=== PATIENT | female | born 1995 | race Caucasian/White ===

== ENCOUNTER → 2016-11-25 | Outpatient (REF) | payer OTHER ==
[~2016-11-25] MED LIST: ACET500C PO; IBUP80TA PO; PRE-TAB3 PO
== END ==
LOC: M LAB REF 13:22
PROVIDERS: ATTEND Specialist
DX: Z34.83 Encounter for supervision of other normal pregnancy, third trimester (principal); Z36 Encounter for antenatal screening of mother

== ENCOUNTER 2016-12-16 10:34 | Inpatient (IN) | payer OTHER ==
[2016-12-16] VITALS (8 sets, daily range): BP systolic 114–138; BP diastolic 75–90
[~2016-12-16] VITALS: Ht 154.9 cm; Wt 57.0 kg
[2016-12-16] MEDS: PRENATAL VITAMIN TAB PO SCH (09:00)
[2016-12-16 11:10] LABS: MEAN CORPUSCULAR HEMOGLOBIN 30.6 pg (27.0-33.0); MEAN CORPUSCULAR HGB CONC 33.1 g/dl (32.0-36.5); MEAN CORPUSCULAR VOLUME 92.5 fl (80.0-96.0); WHITE BLOOD COUNT 19.5 K/mm3 (4.0-10.0)
[2016-12-16] MEDS ORDERED: OXYTOCIN 30 UNITS IN 0.9% NaCl 500ML IV BAG (J2590) As Ordered ONE (11:40)
[2016-12-16] MEDS ORDERED: OXYTOCIN DRIP 30 UNITS in APPROPRIATE DILUENT 1 EA IV SCH (13:35)
[2016-12-16] MEDS: IBUPROFEN 800 MG TAB PO PRN ×2 (13:38→20:54)
[2016-12-16] MEDS ORDERED: METHYLERGONOVINE MALEATE 0.2 MG TAB PO PRN (13:45)
[2016-12-16] MEDS ORDERED: MOM 30ML SUSPENSION UDC PO PRN (13:45)
[2016-12-16] MEDS ORDERED: DIBUCAINE 1% OINTMENT 30GM TOP PRN (13:45)
[2016-12-16] MEDS ORDERED: MEASLES,MUMPS,RUBELLA VACCINE INJ (MMR-II) (90707) SC SCH (13:45)
[2016-12-16] MEDS ORDERED: DOCUSATE SODIUM 100 MG CAP PO PRN (13:45)
[2016-12-16] MEDS ORDERED: ANUSOL HC CREAM 30GM TOP PRN (13:45)
[2016-12-16] MEDS ORDERED: ACETAMINOPHEN 500 MG TAB PO PRN (13:45)
[2016-12-16] MEDS ORDERED: RHOGAM 300 MCG (1500 IU) INJ (J2790) IM SCH (13:45)
--- NOTE | 2016-12-16 15:12 | HPE ---
DATE OF ADMISSION: 12/16/2016 REASON FOR ADMISSION: Labor. HISTORY OF PRESENT ILLNESS: Ms. Bell is a 21-year-old, 2, para 1, who presents at 39 weeks 4 days estimated gestational age in active labor. She reports contractions that started throughout the morning and have increased in intensity and frequency. She reports active movements. Denies any vaginal bleeding or leakage of fluid. Her course has been unremarkable. She initiated care in the first trimester and it has been appropriate throughout. PAST MEDICAL HISTORY: Anxiety. PAST SURGICAL HISTORY: None. PAST OBSTETRICAL HISTORY: She is a 2, para 1. She has had a terminal vaginal delivery proven to 6 pounds 6 ounces. MEDICATIONS: - vitamin ALLERGIES: She has no known drug allergies. SOCIAL HISTORY: She denies any alcohol, tobacco, or drug use during the . PHYSICAL EXAMINATION: VITAL SIGNS: Stable. She is afebrile. She has a category 1 heart rate tracing with contractions approximately every 2 to 3 minutes on tocodynamometer. GENERAL APPEARANCE: No acute distress. LUNGS: Clear to auscultation bilaterally. CARDIOVASCULAR: Heart has regular rate and rhythm. ABDOMEN: Soft, gravid, nontender. CERVICAL EXAM: She is 8 cm dilated, 90% effaced with bulging bag of fluid, 0 station. LABORATORY DATA: Blood type is A positive. Antibody screen is negative. Rubella was equivocal and will need vaccination. RPR nonreactive. Hepatitis surface antigen is negative. HIV is negative. Hepatitis C is nonreactive. Chlamydia and gonorrhea screens negative. She had a normal 1-hour Glucola of 106. She is Group B streptococcus (GBS) negative. ASSESSMENT: 1. Ms. Bell is a 21-year-old, 2, para 1, who is 39 weeks 4 days estimated gestational age in active labor. 2. Reassuring status. PLAN: 1. Admit to labor and delivery. CBC, RPR, type and screen. 2. Anticipate spontaneous vaginal delivery.
--- NOTE | 2016-12-16 15:46 | PAIN ---
DATE: 12/16/2016 DATE OF DELIVERY: 12/16/2016 TIME OF : 11:57 GENDER: Male. APGARS: 8 and 9. WEIGHT: 3602 grams (7 pounds, 16 ounces). LACERATIONS: None. ANESTHESIA: None. ESTIMATED BLOOD LOSS: 3 mL. COUNTS: 5 laparotomy sponges accounted for prior to and after delivery. DELIVER NOTE: On the 12/16/2016 at 11:53, Ms. Bell, a 21-year-old 2, now para 2, had a spontaneous vaginal delivery of a live born male infant. Apgars are 8 and 9, weight was 7 pounds, 16 ounces, 3602 grams and was delivered left occipitoanterior (KARINA) over intact perineum followed by delivery of right anterior shoulder, left posterior shoulder and corpus. Infant was handed to mom with a good cry. Cord was clamped times two, was clamped by the father of the baby under my direction. Cord blood was then obtained. Placenta was then drained and delivered grossly intact. A premixed bag of 5 mL of normal saline with 30 units of pitocin was then bolused, along with uterine massage, the uterus was firm. On inspection of cervix, vagina and perineum were grossly intact, hemostatic. Mom and baby in recovery room in stable condition. The couple decided to name their son Olegario.
[2016-12-17 06:17] VITALS: BP 115/72
[2016-12-17] MEDS: PRENATAL VITAMIN TAB PO SCH (08:17)
[2016-12-17] MEDS: IBUPROFEN 800 MG TAB PO PRN (16:00)
[2016-12-17 18:17] VITALS: BP 120/74
[2016-12-17 22:00] VITALS: BP 120/62
[2016-12-18 06:00] VITALS: BP 116/75
[2016-12-18] MEDS: PRENATAL VITAMIN TAB PO SCH (09:42)
[2016-12-18] MEDS ORDERED: IBUP-1114 PO (11:18)
[2016-12-18] MEDS ORDERED: ACET50TA PO (11:18)
== END 2016-12-18 11:45 | disposition home or self-care (01) | DRG 560 ==
LOC: M LDI 10:34 → M OBS 14:25
PROVIDERS: ADMIT Obstetrics & Gynecology; ATTEND Obstetrics & Gynecology
PROC: 10E0XZZ Delivery of Products of Conception, External Approach (ICD-10-PCS; principal; 2016-12-16)
DX: O80 Encounter for full-term uncomplicated delivery (principal); Z37.0 Single live birth; Z3A.39 39 weeks gestation of pregnancy

== ENCOUNTER → 2018-10-10 | Outpatient (REF) | payer OTHER ==
[~2018-10-10] MED LIST changes: +IBUP-1114 PO; +MAPA500T2 PO
== END ==
LOC: M SMT 13:05
PROVIDERS: ATTEND Advanced Practice Midwife
DX: Z12.4 Encounter for screening for malignant neoplasm of cervix (principal)

== ENCOUNTER → 2018-10-11 | Outpatient (REF) | payer OTHER ==
[2018-10-11 12:17] LABS: HEMATOCRIT 38.5 % (36.0-47.0); HEMOGLOBIN 12.7 g/dl (12.0-15.5); MEAN CORPUSCULAR HEMOGLOBIN 30.9 pg (27.0-33.0); MEAN CORPUSCULAR VOLUME 93.7 fl (80.0-96.0); PLATELET COUNT, AUTOMATED 262 10^3/uL (150-450); RED BLOOD COUNT 4.11 10^6/uL (4.00-5.40); WHITE BLOOD COUNT 6.1 10^3/uL (4.0-10.0)
== END ==
LOC: M SFHCPLAZ 10:07
PROVIDERS: ATTEND Family Medicine
DX: R42 Dizziness and giddiness (principal)

== ENCOUNTER → 2019-03-13 | Outpatient (CLI) | payer OTHER ==
[2019-03-13 17:57] LABS: BASO % 0.3 % (0.0-1.0); EOS # 0.1 10^3/uL (0.0-0.50); EOS % 0.7 % (0.0-3.0); HEMATOCRIT 37.2 % (36.0-47.0); HEMOGLOBIN 12.4 g/dl (12.0-15.5); LYMPH # 1.8 10^3/uL (1.5-6.5); MEAN CORPUSCULAR HEMOGLOBIN 31.1 pg (27.0-33.0); MEAN CORPUSCULAR HGB CONC 33.3 g/dl (32.0-36.5); MEAN CORPUSCULAR VOLUME 93.2 fl (80.0-96.0); MONO # 0.5 10^3/uL (0.0-0.8); MONO % 4.7 % (0.0-5.0); NEUTROPHILS # 8.2 10^3/uL (1.8-7.7); PLATELET COUNT, AUTOMATED 278 10^3/uL (150-450); RED BLOOD COUNT 3.99 10^6/uL (4.00-5.40); WHITE BLOOD COUNT 10.6 10^3/uL (4.0-10.0)
[2019-03-13 18:59] LABS: CHLAMYDIA DNA AMPLIFICATION NEGATIVE (NEGATIVE); GC DNA AMPLIFICATION NEGATIVE (NEGATIVE)
[2019-03-14 11:44] LABS: HEPATITIS C VIRUS ABY INDEX < 0.0 INDEX (<0.8); HIV 1&2 SCREEN CENTAUR NEGATIVE (NEGATIVE); RUBELLA IgG QUALITATIVE IMMUNE (IMMUNE)
== END ==
LOC: M SMT 13:35
PROVIDERS: ATTEND Advanced Practice Midwife
DX: Z3A.12 12 weeks gestation of pregnancy (principal); Z34.81 Encounter for supervision of other normal pregnancy, first trimester

== ENCOUNTER → 2019-03-27 | Outpatient (CLI) | payer OTHER ==
--- NOTE | 2019-03-27 15:22 | REP ---
Clinical: Dating and viability Comparison: None . Findings: Examination demonstrates a single live intrauterine in transverse presentation. motion is identified by technologist. Placenta is noted anteriorly and grade zero without evidence for placenta previa or abruption. Amniotic fluid volume is normal. Cervix measures 4.0 cm in length and appears closed. No evidence for nuchal cord. Biometrical measurements correspond to 15 weeks 2 days gestational age with estimated date of delivery 09/16/2019. heart rate equals 143 bpm. Impression: Single live early intrauterine with biometrical measurements at 15 weeks 2 days gestational age. Complete anatomical assessment should be performed at 19-20 weeks. Electronically Signed by Americo Freeman MD 03/27/2019 03:13 P
== END ==
LOC: M RAD 14:29
PROVIDERS: ATTEND Advanced Practice Midwife
DX: Z34.82 Encounter for supervision of other normal pregnancy, second trimester (principal); Z36.89 Encounter for other specified antenatal screening; Z3A.15 15 weeks gestation of pregnancy

== ENCOUNTER 2019-04-28 18:10 | Emergency (ER) | payer OTHER ==
[~2019-04-28] VITALS: Ht 154.9 cm; Wt 50.5 kg
[2019-04-28 20:45] VITALS: BP 105/66
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
--- NOTE | 2019-04-30 07:51 | REP ---
Right foot two views : There is no fracture or dislocation. Mineralization and joint spaces are normal. There are no calcifications or foreign bodies. Impression: Negative right foot . Electronically Signed by Eugene Haas MD 04/29/2019 08:04 A
--- NOTE | 2019-04-30 07:52 | REP ---
Chest, single PA view: There are no comparisons. There is no pneumothorax, hemothorax or pulmonary contusion. Cardiac size is normal. There is no mediastinal widening. The avery are unremarkable. No fractures are identified. Superimposed breast shadows artifactually increase radiodensity inferiorly in the lung garcia . Essentially negative PA chest. Electronically Signed by Eugene Haas MD 04/29/2019 08:31 A
== END 2019-04-28 20:49 | disposition home or self-care (01) ==
LOC: M ED 18:10 → EDBD 18:10 → M ED 20:49
DX: Z04.1 Encounter for examination and observation following transport accident (principal); O9A.212 Injury, poisoning and certain other consequences of external causes complicating pregnancy, second trimester; S90.31XA Contusion of right foot, initial encounter; S23.8XXA Sprain of other specified parts of thorax, initial encounter; S13.4XXA Sprain of ligaments of cervical spine, initial encounter; V49.50XA Passenger injured in collision with unspecified motor vehicles in traffic accident, initial encounter; Z3A.19 19 weeks gestation of pregnancy

== ENCOUNTER → 2019-05-01 | Outpatient (CLI) | payer OTHER ==
--- NOTE | 2019-05-01 16:07 | REP ---
Clinical: Anatomical evaluation. Comparison: 04/28/2019 . Findings: Examination demonstrates a single live intrauterine in transverse (head to maternal left) presentation. motion is identified by technologist. Placenta is noted fundal and grade zero without evidence for placenta previa or abruption. Amniotic fluid volume is normal. Cervix measures 4.1 cm in length and appears closed. No evidence for nuchal cord. Gestational age by LMP the 19 weeks 3 days with CHACORTA 09/22/2019 . Gestational age by current measurements 19 weeks for the with CHACORTA 09/21/2019 . FHR equals 147 beats per minute. BPD 4.6 cm 20 weeks 0 days HC 16.8 cm 19 weeks 3 days AC 15.3 cm 20 weeks 3 days FL 3.1 cm 19 weeks 4 days HL 3.0 cm 19 weeks 5 days HC/AC ratio 1.10 Estimated weight 324 grams ( 68th percentile). Anatomical assessment demonstrates normal structures including cranium, choroid plexus, cavum, cerebellum/posterior fossa, facial features, lungs, ventricular outflow tracts, diaphragm, stomach, cord insertion/three-vessel cord, kidneys/bladder, spine, and extremities. Echogenic focus within the right cardiac ventricle consistent with prominent moderator band. Impression: Single live intrauterine in transverse lie demonstrating appropriate interval growth. Follow up evaluation of the heart may be warranted. Electronically Signed by Americo Freeman MD 05/01/2019 03:59 P
== END ==
LOC: M RAD 15:14
PROVIDERS: ATTEND Advanced Practice Midwife
DX: Z34.82 Encounter for supervision of other normal pregnancy, second trimester (principal)

== ENCOUNTER → 2019-05-07 | Outpatient (REF) | payer OTHER ==
[2019-05-07 14:04] LABS: FREE T4 1.15 NG/DL (0.76-1.46); THYROID STIMULATING HORMONE 1.92 uIU/ML (0.358-3.740)
== END ==
LOC: M SFHCPLAZ 09:15
PROVIDERS: ATTEND Family Medicine
DX: R25.1 Tremor, unspecified (principal)

== ENCOUNTER → 2019-05-09 | Outpatient (CLI) | payer OTHER ==
[~2019-05-09] MED LIST changes: +MULTTAB20 PO
[2019-05-09 13:58] LABS: FREE T4 1.12 NG/DL (0.76-1.46); MAGNESIUM LEVEL 2.2 MG/DL (1.8-2.4); THYROID STIMULATING HORMONE 1.65 uIU/ML (0.358-3.740)
[2019-05-09 14:00] LABS: TOTAL 25(OH) VITAMIN D 22.8 NG/ML (30.0-100.0)
== END ==
LOC: M SMT 12:05
PROVIDERS: ATTEND Advanced Practice Midwife
DX: F41.9 Anxiety disorder, unspecified (principal)

== ENCOUNTER → 2019-05-21 | Outpatient (CLI) | payer OTHER ==
[~2019-05-21] MED LIST changes: -MULTTAB20 PO
--- NOTE | 2019-05-21 19:03 | REP ---
REASON: anatomy. Prior examination of 05/01/2019 did not optimally visualize a four chamber heart for which this examination was specifically performed. Multiple ultrasonographic images of the gravid uterus show a single living intrauterine gestation in the cephalic presentation. Doppler interrogation of the heart shows a heart rate of 146 beats per minute. The placenta is anterior and not low lying. The cervix measures 4.2 cm and is closed. The subjective amniotic fluid volume is within normal limits. BPD 5.4 cm 22 weeks 3 days HC 19.7 cm 21 weeks 6 days AC 18.0 cm 22 weeks 6 days FL 3.9 cm 22 weeks 5 days The estimated weight is 524 grams which is at the 57th percentile for a 22 week 2 day gestational age. Four chamber heart was seen normally today. Once again, a small echogenic focus was seen in the right ventricle possibly representing either cordae tendineae or a prominent moderator band. IMPRESSION: Single living intrauterine gestation as described above with an estimated gestational age of 22 weeks 5 days via composite criteria and an estimated date of delivery of 09/19/2019. Four chamber heart findings as described above. Consider followup. No bridger anomalies were detected. Electronically Signed by Troy Lucas DO 05/22/2019 11:23 A
== END ==
LOC: M RAD 10:51
PROVIDERS: ATTEND Advanced Practice Midwife
DX: Z34.82 Encounter for supervision of other normal pregnancy, second trimester (principal); Z36.89 Encounter for other specified antenatal screening; Z3A.22 22 weeks gestation of pregnancy

== ENCOUNTER → 2019-07-10 | Outpatient (CLI) | payer OTHER ==
[2019-07-10 17:49] LABS: BASO % 0.4 % (0.0-1.0); EOS # 0.1 10^3/uL (0.0-0.5); EOS % 0.5 % (0.0-3.0); HEMATOCRIT 33.1 % (36.0-47.0); HEMOGLOBIN 10.7 g/dl (12.0-15.5); LYMPH # 1.5 10^3/uL (1.5-5.0); LYMPH % 13.2 % (24.0-44.0); MEAN CORPUSCULAR HEMOGLOBIN 31.4 pg (27.0-33.0); MEAN CORPUSCULAR HGB CONC 32.3 g/dl (32.0-36.5); MEAN CORPUSCULAR VOLUME 97.1 fl (80.0-96.0); MONO # 0.7 10^3/uL (0.0-0.8); MONO % 5.9 % (0.0-5.0); NEUTROPHILS # 8.7 10^3/uL (1.5-8.5); PLATELET COUNT, AUTOMATED 254 10^3/uL (150-450); RED BLOOD COUNT 3.41 10^6/uL (4.00-5.40)
== END ==
LOC: M SMT 12:55
PROVIDERS: ATTEND Advanced Practice Midwife
DX: Z34.82 Encounter for supervision of other normal pregnancy, second trimester (principal); Z3A.00 Weeks of gestation of pregnancy not specified

== ENCOUNTER → 2019-08-28 | Outpatient (REF) | payer OTHER | LOC: M SFHCWAGY 13:26 | PROVIDERS: ATTEND Advanced Practice Midwife | DX: Z36.85 Encounter for antenatal screening for Streptococcus B (principal) ==

== ENCOUNTER → 2019-09-11 | Outpatient (CLI) | payer OTHER | LOC: M PLALAB 11:12 | PROVIDERS: ATTEND Advanced Practice Midwife | DX: Z11.3 Encounter for screening for infections with a predominantly sexual mode of transmission (principal) ==

== ENCOUNTER 2019-09-20 18:56 | Inpatient (IN) | payer MEDICAID, OTHER ==
[~2019-09-20] VITALS: Ht 154.9 cm; Wt 61.2 kg
[2019-09-20] MEDS ORDERED: MULTTAB20 PO (19:09)
[2019-09-20 19:13] VITALS: BP 123/80
[2019-09-20] MEDS ORDERED: LR 1,000 ML IV SCH (20:24)
[2019-09-20] MEDS ORDERED: OXYTOCIN 30 UNITS IN 0.9% NaCl 500ML IV BAG (J2590) As Ordered ONE (20:27)
[2019-09-20 20:37] LABS: HEMATOCRIT 30.7 % (36.0-47.0); HEMOGLOBIN 9.8 g/dl (12.0-15.5); MEAN CORPUSCULAR HEMOGLOBIN 27.8 pg (27.0-33.0); MEAN CORPUSCULAR HGB CONC 31.9 g/dl (32.0-36.5); MEAN CORPUSCULAR VOLUME 87.2 fl (80.0-96.0); PLATELET COUNT, AUTOMATED 255 10^3/uL (150-450); RED BLOOD COUNT 3.52 10^6/uL (4.00-5.40); WHITE BLOOD COUNT 16.4 10^3/uL (4.0-10.0)
[2019-09-20 20:59] VITALS: BP 132/79
--- NOTE | 2019-09-20 21:06 | HPEPDOC ---
Obstetrical History & Physical General Date of Admission Sep 20, 2019 at 19:40 History of Present Illness 24-year-old 3, para 2, by last menstrual period confirmed by a first trimester ultrasound with complaints of contraction. She reports contractions throughout the day that of increasing intensity and frequency. She reports active movements. Denies any vaginal bleeding. Her course has been unremarkable. She initiated care first trimesters and appropriate throughout Chief Complaint: Contractions, term Information Provided By: Patient Age: 24 : 3 Term: 2 Livin Care Care: Good Care Dating Final EDC: Sep 22, 2019 Final EDC by: LMP LMP: Dec 16, 2018 EGA at Admission: 39 Past Medical History Past Obstetrical History : Past Obstetrical History: Multigravida Type of Delivery: Spontaneous Vaginal Del. Complications: No SENIOR PRODUCTION MANAGER History: No pertinent history Past Medical History Surgical History: Denies/None Family History Significant Family History: Other Family History son with Fanconi Syndrome Social History Marital Status: Single * Smoker: non-smoker Drugs: denies Allergies Coded Allergies: No Known Allergies (Unverified , 04/28/19) Medications Scheduled No122/Iron/Folic Acid ( Multi Tablet) 1 Each Tablet, 1 TAB PO DAILY Physical Examination Physical Examination GENERAL: Alert and oriented times three. BREAST: . ABDOMEN: Gravid and non-tender to touch. FETUS: Is vertex (VTX) by sterile vaginal examination (SVE), fetus is vertex (VTX) by Jared. HEART RATE: Regular rate and rhythm. LUNGS: Clear to auscultation (CTA). EXTREMITIES: No edema. No clonus. Deep tendon reflexes (DTRs) + . Vital Signs/I&O Vital Signs Date Time Temp Pulse Resp B/P (MAP) Pulse Ox O2 Delivery O2 Flow Rate FiO2 09/20/19 19:13 98.2 105 20 123/80 (94) Laboratory Data 24H [facility] Laboratory Tests 2 09/20/19 19:48: Serology Scanned Report Hepatitis B Testing 09/20/19 20:26: Nucleated Red Blood Cells % (auto) 0.0 CBC/BMP Laboratory Tests 09/20/19 20:26 Pertinent Laboratoy Data Blood Type: A+ RBC Antibody Screen: Negative HIV: Negative Hepatitis B: Negative Hepatitis C: Negative Rapid Plasma Reagin: Nonreactive Rubella: Immune Chlamydia/Gonorrhea: Negative Group B Streptococcus: Negative Vaginal Examination Dilation: 5 cm Effacement: 80% Station: -1 Cervical Consistency: Soft Cervical Position: Anterior Presentation: Cephalic presentation Assessment Variability: Moderate Accelerations: Positive Tocometer Contractions: Yes Frequency: every 2-5 min. Assessment/Plan Assessment [Ms. Luciano] is a 24-year-old (G) 3 para (P) 2 --- at + 39 weeks by 5- week first trimester ultrasound. Presents to Labor and Delivery (L&D) [reassuring status]. Plan Admit and orient. Director Systems and consent. Diet: [Regular]. Group B Streptococcus (GBS) [negative]. Labs and intravenous (IV) per unit protocol. Counseled on Pitocin and induction of labor (IOL). Anticipate [normal spontaneous delivery ()]. C-S as appropriate. ANTOINETTE ARGUELLES MD. Sep 20, 2019 21:06
[2019-09-20] MEDS ORDERED: OXYTOCIN DRIP 30 UNITS in IV 1 EA IV SCH (22:14)
[2019-09-20] MEDS ORDERED: DIBUCAINE 1% OINTMENT 30GM TOP PRN (22:15)
[2019-09-20] MEDS ORDERED: ACETAMINOPHEN 500 MG TAB PO PRN (22:15)
[2019-09-20] MEDS ORDERED: METHYLERGONOVINE MALEATE 0.2 MG TAB PO PRN (22:15)
[2019-09-20] MEDS ORDERED: MEASLES,MUMPS,RUBELLA VACCINE INJ (MMR-II) (90707) SC SCH (22:15)
[2019-09-20] MEDS ORDERED: IBUPROFEN 600 MG TAB PO PRN (22:15)
[2019-09-20] MEDS ORDERED: DOCUSATE SODIUM 100 MG CAP PO PRN (22:15)
[2019-09-20] MEDS ORDERED: RHOGAM 300 MCG (1500 IU) INJ (J2790) IM SCH (22:15)
[2019-09-20] MEDS ORDERED: IBUPROFEN 800 MG TAB PO PRN (22:15)
[2019-09-20] MEDS ORDERED: MOM 30ML SUSPENSION UDC PO PRN (22:15)
[2019-09-20] MEDS ORDERED: ACETAMINOPHEN TAB 650MG DOSE (2X325MG) PO PRN (22:15)
[2019-09-20] MEDS ORDERED: ANUSOL HC CREAM 30GM TOP PRN (22:15)
--- NOTE | 2019-09-20 22:21 | DNPDOC ---
[facility] Delivery Note Delivery Note DATE OF DELIVERY: 09/20/2019 PREDELIVERY DIAGNOSIS:, 39 weeks-5/7 weeks' gestation and labor. POST DELIVERY DIAGNOSIS: Delivered. PROCEDURE:, Spontaneous vaginal delivery. BUILDING MECHANIC: Dr. Carter ANESTHESIA: None. ESTIMATED BLOOD LOSS: 300 mL. FINDINGS: 8 pound 4 ounce male , Score, 7/9. DELIVERY SUMMARY: On 09/20/2019, Mrs. Luciano a 24-year-old 3, now para 3, had a spontaneous vaginal delivery of a liveborn male infant, Apgars 7 and 9 was 8 lbs. 4 oz. or 3730 g. Time of was 2150 head was delivered TAMMY followed by delivery of left anterior shoulder and there was a right nuchal arm that was delivered as well. She is followed by delivery of the body. In faye was handed to mom with a good cry. Cord was clamped 2 and was cut by the father of baby under my direction. Placenta was then drained and delivered grossly intact. A premixed bag of 500 amounts of normal saline with 30 units of Pitocin as well as wound massage. Uterus firm. On inspection, cervix, vagina, perineum was grossly intact and hemostatic. Mom and baby recovered in stable condition. The couples decided to maintain the son Ramana. ANTOINETTE CARTER MD. Sep 20, 2019 22:21
[2019-09-20 23:31] VITALS: BP 128/67
[2019-09-21 00:28] VITALS: BP 122/67
[2019-09-21 06:00] VITALS: BP 105/54
--- NOTE | 2019-09-21 09:07 | IPNPDOC ---
Text Note Date of Service The patient was seen on 09/21/19. NOTE Day 1 S/p vaginal delivery; uncomplicated S:Patient is a 24-year-old G3 now P3 female who is 1 day . Patient's pain is well-controlled. Patient is complaining of some slight cramping but is feeling otherwise well. She is tolerating a normal diet and has been able to handle it without difficulty. Patient is also using the bathroom without di fficulty. Patient denies any shortness of breath or leg tenderness. O: vitals see below Abd: Fundal height is 1 cm below the umbilicus. Uterus is firm and nontender Ext: No edema or tenderness A/P: 24 yo G3 now P 3. day 1 s/p delivery. Hemodynamically stable, afebrile, good pain control. Recovering well. -Routine care -Anticipate discharge are VS,Fishbone, I+O VS, Fishbone, I+O Laboratory Tests 09/20/19 20:26 Vital Signs Date Time Temp Pulse Resp B/P (MAP) Pulse Ox O2 Delivery O2 Flow Rate FiO2 09/21/19 06:00 97.8 84 18 105/54 (71) 97 Room Air I&O- Last 24 Hours up to 6 AM 09/21/19 06:00 Intake Total 1250 ml Output Total 650 ml Balance 600 ml GME ATTESTATION GME ATTESTATION My faculty preceptor for this patient encounter was physically present during the encounter and was fully available. All aspects of the patient interview, examination, medical decision making process, and medical care plan development were reviewed and approved by the faculty preceptor. The faculty preceptor is aware and concurs with the plan as stated in the body of this note and will attest to such by his/her cosignature. ABDIRAHMAN BERMUDEZ DO Sep 21, 2019 09:07
[2019-09-21] MEDS: PRENATAL VITAMINS CHEWABLE TABLET PO SCH (10:11)
[2019-09-21 18:00] VITALS: BP 112/71
[2019-09-22 06:00] VITALS: BP 102/59
[2019-09-22] MEDS: PRENATAL VITAMINS CHEWABLE TABLET PO SCH (09:40)
== END 2019-09-22 13:40 | disposition home or self-care (01) | DRG 560 ==
LOC: M LDO 18:56 → M LDI 19:40 → M OBS 09-21 00:26
PROVIDERS: ADMIT Obstetrics & Gynecology; ATTEND Obstetrics & Gynecology
PROC: 10E0XZZ Delivery of Products of Conception, External Approach (ICD-10-PCS; principal; 2019-09-20)
DX: O80 Encounter for full-term uncomplicated delivery (principal); Z37.0 Single live birth; Z3A.39 39 weeks gestation of pregnancy

== ENCOUNTER → 2019-11-15 | Outpatient (REF) | payer OTHER, MEDICAID ==
[~2019-11-15] MED LIST changes: +MULTTAB20 PO
[2019-11-15 18:43] LABS: C REACTIVE PROTEIN QUANTITATIV < 0.30 MG/DL (0.00-0.30); RHEUMATOID FACTOR QUANT < 10.0 IU/ML (<15.0)
== END ==
LOC: M SFHCPLAZ 15:01
PROVIDERS: ATTEND Family Medicine
DX: M25.531 Pain in right wrist (principal)